=== PATIENT | male | born 1945 | race American Indian/Alaskan Native ===

== ENCOUNTER 2017-12-01 18:56 | Emergency (ER) | payer MEDICARE ==
--- NOTE | 2017-12-01 20:59 | Cat Scan Report ---
FINAL REPORT PROCEDURE: CT HEAD/BRAIN WO CON TECHNIQUE: Computerized tomography of the head was performed without contrast material. HISTORY: neuro deficits < 6hrs or sx present upon awakening COMPARISON: No prior studies are available for comparison. FINDINGS: Brain: There is no evidence of intracranial hemorrhage. No parenchymal hemorrhage is seen. No mass lesions or mass effect is identified. No abnormal extra-axial fluid collections or masses are seen. Moderate-sized old area encephalomalacia is seen in the right frontal lobe posterior lateral and also the anterior lateral aspect of the right insular cortex.. Nonspecific mineralization of the basal ganglia are visualized bilaterally. Small old lacunar infarcts seen in the anterior limb of the right internal capsule. There is some decreased density seen in the periventricular white matter without mass effect. This is fairly symmetric and does not exhibit any mass effect consistent with gliosis probably on the basis of microvascular disease or white matter changes of aging. Ventricles: The ventricles, sulcal pattern and fissures are prominent consistent with atrophy. Bones: No evidence of acute fracture. Paranasal sinuses: There is minimal mucosal thickening in the right frontal sinus and in few of the ethmoid air cells. Paranasal sinuses otherwise are clear. Mastoid air cells: clear IMPRESSION: There is evidence of mild atrophy and gliosis. Moderate size old area of encephalomalacia seen involving the right frontal lobe posterior lateral and also a portion of the right insular cortex. Old lacunar infarcts seen in the anterior limb of the internal capsule. No acute intracranial abnormalities are identified. If symptoms persist or worsen consider follow-up CT scan or MRI for further evaluation. Mild paranasal sinus disease as described.
[2017-12-01 21:29] LABS: Basophils % (Auto) 0.6 % (0.0-1.8); Eosinophils # (Auto) 0.1 K/mm3 (0.0-0.4); Eosinophils % (Auto) 1.2 % (0.0-4.3); Hematocrit 44.5 % (35.5-45.6); Hemoglobin 14.2 gm/dl (11.8-15.2); Lymphocytes % (Auto) 23.1 % (13.4-35.0); Mean Corpuscular HGB Conc 32 % (32-34); Mean Corpuscular Hemoglobin 27 pg (28-32); Mean Corpuscular Volume 86 fl (84-94); Monocytes # (Auto) 0.8 K/mm3 (0.0-0.8); Monocytes % (Auto) 8.8 % (0.0-7.3); Platelet Count 174 K/mm3 (140-440); Red Blood Count 5.18 M/mm3 (3.65-5.03)
[2017-12-01 21:31] LABS: INR 0.94 (0.87-1.13); Partial Thromboplastin Time 28.4 Sec. (24.2-36.6)
[2017-12-01 21:32] LABS: Thrombin Time 15.8 Sec. (15.1-19.6)
[2017-12-01 21:40] LABS: BUN/Creatinine Ratio 16; Blood Urea Nitrogen 16 mg/dL (9-20); Calcium 9.5 mg/dL (8.4-10.2); Hemolysis Index 16
[2017-12-01] MEDS ORDERED: ERYTHROMYCIN OPHTH OINT OU ONE (21:49)
--- NOTE | 2017-12-01 22:57 | Cat Scan Report ---
FINAL REPORT PROCEDURE: CT FACIAL BONES WO CON TECHNIQUE: Computerized tomography of the facial bones and soft tissues with axial and coronal sections performed from the cranial aspect of the frontal sinuses to the caudal portion of the mandible without contrast material. HISTORY: right periorbital redness, eye discharge COMPARISON: No prior studies are available for comparison. FINDINGS: No facial fractures are identified. The orbits, nasal bone, zygomas and zygomatic arches as well as the paz of the paranasal sinuses are intact. The mandible is also intact. Small well-circumscribed cystic lesions seen in the maxilla anteriorly in the midline. This measures 1 centimeter by 6.4 millimeters. Paranasal sinuses are clear. Severe diffuse dental disease is present. Soft tissue swelling is seen involving the eyelids and soft tissues anterior aspect of the left orbit. This appears to be confined to the preseptal soft tissues. Postseptal soft tissues appear normal. The lacrimal gland, optic musculature and optic nerves are unremarkable. IMPRESSION: No acute bony abnormalities are identified. No fractures are seen. Simple appearing small cystic lesions seen in the maxilla anteriorly in the midline. This measures approximately 1 centimeter. Edematous changes seen in the soft tissues anterior aspect right orbit suggesting preseptal cellulitis. Severe diffuse dental disease is present.
[2017-12-02] MEDS ORDERED: KEFLEX PO ONE (00:03)
[2017-12-02] MEDS ORDERED: CLEOCIN PO ONE (00:03)
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
[2017-12-02 00:25] VITALS: BP 170/94
== END 2017-12-02 00:25 | disposition home or self-care (01) ==
LOC: ED 18:56
DX: G51.0 Bell's palsy (principal); H00.032 Abscess of right lower eyelid; L03.211 Cellulitis of face; F17.200 Nicotine dependence, unspecified, uncomplicated; F12.90 Cannabis use, unspecified, uncomplicated
CPT/HCPCS: 36415; 70450; 70486; 80048; 85025; 85610; 85670; 85730; 93005; 93010; 99284